=== PATIENT | male | born 1960 | race African-American/Black ===

== ENCOUNTER 2019-02-02 04:21 | Inpatient (IN) | payer OTHER ==
[~2019-02-02] VITALS: Ht 185.4 cm; Wt 69.4 kg
[2019-02-02] MEDS ORDERED: ONDANSETRON HCL 4MG/2ML INJ IV STA (04:42)
[2019-02-02] MEDS ORDERED: SODIUM CHLORIDE 0.9% 1,000 ML IV ONE (04:42)
[2019-02-02] MEDS ORDERED: MORPHINE SULFATE 4 MG/ML CPJ (NOT FOR IM USE) IV STA (04:42)
[2019-02-02 05:06] LABS: HEMATOCRIT. 36.4 % (42.0-52.0); HEMOGLOBIN. 12.4 g/dL (14.0-18.0); MEAN CORPUSCULAR HEMOGLOBIN 31.2 pg (28.0-32.0); MEAN CORPUSCULAR VOLUME 91.2 fL (80.0-94.0); MEAN PLATELET VOLUME 8.3 fl (7.4-10.4); PLATELET 184 x1000/uL (130-400); RED BLOOD CELL COUNT 3.99 mill/uL (4.7-6.1); RED CELL DISTRIBUTION WIDTH 13.4 % (11.6-14.6)
[2019-02-02 05:13] LABS: CHLORIDE 104 mEq/L (98-107)
[2019-02-02 05:18] LABS: ETHANOL BLOOD < 10 mg/dL
[2019-02-02 05:30] LABS: INR 1.1
[2019-02-02 08:41] LABS: CLARITY URINE TURBID (CLEAR); COLOR URINE ORANGE (YELLOW); KETONES URINE 1+ (NEGATIVE); LEUKOCYTE ESTERASE URINE NEGATIVE (NEGATIVE); NITRITE URINE NEGATIVE (NEGATIVE); OCCULT BLOOD URINE 1+ (NEGATIVE); PROTEIN URINE NEGATIVE (NEGATIVE); SPECIFIC GRAVITY URINE 1.024 (1.005-1.030)
[2019-02-02 08:54] LABS: PLATELET ESTIMATE NORMAL
[2019-02-02 09:08] LABS: *BARBITURATES SCREEN URINE NEGATIVE (NEGATIVE); *BENZODIAZEPINES SCREEN URINE NEGATIVE (NEGATIVE); *COCAINE SCREEN URINE NEGATIVE (NEGATIVE); CANNABINOID URINE SCREEN PRESUMTIVE POSITIVE (NEGATIVE); PHENCYCLIDINE URINE SCREEN NEGATIVE (NEGATIVE)
[2019-02-02 09:09] LABS: *AMPHETAMINES SCREEN URINE NEGATIVE (NEGATIVE); METHADONE URINE SCREEN NEGATIVE (NEGATIVE); OPIATES URINE SCREEN PRESUMTIVE POSITIVE (NEGATIVE)
[2019-02-02 09:15] VITALS: BP 150/82
[2019-02-02 09:20] VITALS: BP 150/82
[2019-02-02] MEDS ORDERED: HYDROCODONE/ACETAMINOPHEN 5/325MG TABLET PO PRN (12:00)
[2019-02-02] MEDS ORDERED: ONDANSETRON HCL 4MG/2ML INJ IV PRN (12:00)
[2019-02-02] MEDS ORDERED: ACETAMINOPHEN 650MG SUPP PR PRN (12:00)
[2019-02-02] MEDS ORDERED: DOCUSATE SODIUM 100MG CAPSULE PO PRN (12:00)
[2019-02-02] MEDS ORDERED: NA PHOS,M-B/NA PHOS,DI-BA ENEMA 118ML PR PRN (12:00)
[2019-02-02] MEDS ORDERED: HYDRALAZINE 20MG/ML VIAL IV PRN (12:00)
[2019-02-02] MEDS ORDERED: DIPHENHYDRAMINE 50MG/ML VIAL IV PRN (12:00)
[2019-02-02] MEDS ORDERED: GUAIFENESIN 200MG/10ML SUGAR FREE UDC PO PRN (12:00)
[2019-02-02] MEDS ORDERED: MAGNESIUM/ALUMINUM HYDROXIDE/SIMETHICONE 30ML UDC PO PRN (12:00)
[2019-02-02] MEDS ORDERED: CLONIDINE 0.1MG TABLET PO PRN (12:00)
[2019-02-02] MEDS ORDERED: IPRATROPIUM/ALBUTEROL 0.5-3(2.5)MG/3ML NEB NEB PRN (12:00)
[2019-02-02] MEDS ORDERED: LORAZEPAM 2MG/ML CPJ IV PRN (12:00)
[2019-02-02] MEDS ORDERED: LORAZEPAM 0.5MG TABLET PO PRN (12:00)
[2019-02-02] MEDS: PANTOPRAZOLE SODIUM 40 MG/VIAL IV SCH (12:25)
[2019-02-02] MEDS: MORPHINE SULFATE 2 MG/ML CPJ (NOT FOR IM USE) IV PRN ×2 (12:25→20:17)
[2019-02-02 12:29] VITALS: BP 132/84
[2019-02-02 13:11] LABS: PROTHROMBIN TIME 10.6 sec (9.6-11.0)
[2019-02-02 15:29] LABS: HEPATITIS B SURFACE ANTIGEN NEGATIVE
[2019-02-02] MEDS: [UNRECOGNIZED DRUG - REMARK] IV SCH ×4 (15:29)
[2019-02-02] MEDS: CHLORDIAZEPOXIDE 25MG CAPSULE PO SCH ×2 (15:36→21:02)
[2019-02-02] MEDS: ENOXAPARIN 40MG/0.4ML SYR SUBCUT SCH (15:37)
[2019-02-02 15:53] LABS: HEPATITIS A AB IGM NEGATIVE (NEGATIVE)
[2019-02-02 16:00] VITALS: BP 154/76
[2019-02-02 18:20] LABS: CREATINE KINASE 191 IU/L (39-308); CREATINE KINASE MB FRACTION < 1.0 ng/mL (0.5-3.6)
[2019-02-02 20:00] VITALS: BP 146/82
[2019-02-02 23:59] LABS: CREATINE KINASE 147 IU/L (39-308); CREATINE KINASE MB FRACTION < 1.0 ng/mL (0.5-3.6)
[2019-02-03] VITALS: BP 121/73
[2019-02-03] MEDS: MORPHINE SULFATE 2 MG/ML CPJ (NOT FOR IM USE) IV PRN ×4 (02:21→22:01)
[2019-02-03 04:00] VITALS: BP 154/82
[2019-02-03] MEDS: CHLORDIAZEPOXIDE 25MG CAPSULE PO SCH ×3 (05:31→22:00)
[2019-02-03 08:00] VITALS: BP 120/56
[2019-02-03 08:20] LABS: CHLORIDE 105 mEq/L (98-107)
[2019-02-03 08:25] LABS: BASOPHILS % 0.3 % (0.0-2.0); EOSINOPHILS % 0.5 % (0.0-5.0); HEMATOCRIT. 30.7 % (42.0-52.0); HEMOGLOBIN. 10.4 g/dL (14.0-18.0); LYMPHOCYTES % 10.4 % (20.0-50.0); MEAN CORPUSCULAR HEMOGLOBIN 31.3 pg (28.0-32.0); MEAN CORPUSCULAR VOLUME 92.6 fL (80.0-94.0); MONOCYTES % 8.3 % (2.0-8.0); NEUTROPHILS % 80.5 % (40.0-76.0); PLATELET 130 x1000/uL (130-400); RED BLOOD CELL COUNT 3.31 mill/uL (4.7-6.1); RED CELL DISTRIBUTION WIDTH 13.5 % (11.6-14.6)
[2019-02-03 08:28] LABS: LDL CHOLESTEROL 54 mg/dL (5-100)
[2019-02-03 08:30] LABS: HDL CHOLESTEROL 78 mg/dL (40-59); T4 FREE 1.03 ng/dL (0.76-1.46)
[2019-02-03] MEDS: [UNRECOGNIZED DRUG - REMARK] IV SCH ×4 (08:32)
[2019-02-03] MEDS: PANTOPRAZOLE SODIUM 40 MG/VIAL IV SCH (08:32)
[2019-02-03] MEDS: ENOXAPARIN 40MG/0.4ML SYR SUBCUT SCH (11:59)
[2019-02-03 12:00] VITALS: BP 165/82
[2019-02-03] MEDS ORDERED: MORPHINE SULFATE 2 MG/ML CPJ (NOT FOR IM USE) IV PRN (12:15)
[2019-02-03] MEDS ORDERED: POTASSIUM CHLORIDE INJ 40 MEQ in DEXT 5% WATER 250 ML IV NR (13:00)
[2019-02-03] MEDS ORDERED: CLONIDINE 0.1MG TABLET PO PRN (13:45)
[2019-02-03] MEDS: AMLODIPINE 2.5MG TABLET PO SCH ×2 (15:06→22:21)
[2019-02-03] MEDS: ACETAMINOPHEN 325MG TABLET PO PRN (15:07)
[2019-02-03 16:00] VITALS: BP 131/65
[2019-02-03 20:00] VITALS: BP 107/60
[2019-02-04] VITALS: BP 110/63
[2019-02-04] MEDS: MORPHINE SULFATE 2 MG/ML CPJ (NOT FOR IM USE) IV PRN ×2 (02:15→20:58)
[2019-02-04 04:00] VITALS: BP 123/61
[2019-02-04] MEDS: CHLORDIAZEPOXIDE 25MG CAPSULE PO SCH ×2 (05:07→15:54)
[2019-02-04 06:10] LABS: BASOPHILS % 0.3 % (0.0-2.0); EOSINOPHILS % 2.8 % (0.0-5.0); HEMATOCRIT. 29.1 % (42.0-52.0); HEMOGLOBIN. 9.9 g/dL (14.0-18.0); LYMPHOCYTES % 12.4 % (20.0-50.0); MEAN CORPUSCULAR HEMOGLOBIN 31.2 pg (28.0-32.0); MEAN CORPUSCULAR VOLUME 92.2 fL (80.0-94.0); MEAN PLATELET VOLUME 8.9 fl (7.4-10.4); MONOCYTES % 6.7 % (2.0-8.0); NEUTROPHILS % 77.8 % (40.0-76.0); PLATELET 129 x1000/uL (130-400); RED BLOOD CELL COUNT 3.16 mill/uL (4.7-6.1); RED CELL DISTRIBUTION WIDTH 12.7 % (11.6-14.6)
[2019-02-04 06:16] LABS: CHLORIDE 106 mEq/L (98-107)
[2019-02-04 06:25] LABS: LDL CHOLESTEROL 51 mg/dL (5-100)
[2019-02-04 06:27] LABS: CREATINE KINASE 52 IU/L (39-308); CREATINE KINASE MB FRACTION < 1.0 ng/mL (0.5-3.6); HDL CHOLESTEROL 70 mg/dL (40-59)
[2019-02-04] MEDS ORDERED: TRANEXAMIC ACID 1,000 MG/10 ML IV NR (06:32)
[2019-02-04] MEDS ORDERED: MORPHINE SULFATE/PF 1MG/ML 10ML AMP ONE (06:35)
[2019-02-04] MEDS ORDERED: KETOROLAC 30MG/ML VIAL ONE (06:35)
[2019-02-04] MEDS ORDERED: ROPIVACAINE HCL 10MG/ML 20 ML VIAL EPI ONE ×2 (06:35→07:11)
[2019-02-04] MEDS ORDERED: EPINEPHRINE 1:1000 1 MG/ML AMP ONE ×2 (06:35→07:10)
[2019-02-04] MEDS ORDERED: BACITRACIN 50,000 UNITS/VIAL ONE (06:36)
[2019-02-04] MEDS ORDERED: NORMAL SALINE 0.9% 10 ML SYR ONE (06:36)
[2019-02-04] MEDS ORDERED: TRANEXAMIC ACID 1,000 MG in SODIUM CHLORIDE 0.9% 100 ML IV NR ×2 (07:00→08:00)
[2019-02-04] MEDS ORDERED: VANCOMYCIN HCL 500 MG/VIAL ONE (07:11)
[2019-02-04] MEDS ORDERED: FENTANYL CITRATE/PF 50MCG/ML 2ML VIAL ONE ×3 (07:34→08:58)
[2019-02-04] MEDS ORDERED: MIDAZOLAM HCL 2 MG/2 ML VIAL ONE (07:34)
[2019-02-04] MEDS ORDERED: ROCURONIUM BROMIDE 10MG/ML VIAL 5ML IV ONE (07:34)
[2019-02-04] MEDS ORDERED: PROPOFOL 200MG/20ML VIAL IV ONE (07:34)
[2019-02-04] MEDS ORDERED: NEOSTIGMINE METHYLSULFATE 1MG/ML 10 ML VIAL ONE (07:34)
[2019-02-04] MEDS ORDERED: CEFAZOLIN SODIUM 1000MG/VIAL ONE (07:35)
[2019-02-04] MEDS ORDERED: ONDANSETRON HCL 4MG/2ML INJ ONE (07:35)
[2019-02-04] MEDS ORDERED: METOCLOPRAMIDE HCL 10MG/2ML VIAL ONE (07:35)
[2019-02-04] MEDS ORDERED: EPHEDRINE SULFATE 50MG/ML VIAL ONE (07:35)
[2019-02-04] MEDS ORDERED: SUCCINYLCHOLINE CHLORIDE 200MG/10ML IV ONE (07:35)
[2019-02-04] MEDS ORDERED: SODIUM CHLORIDE 0.9% 10ML VIAL ONE (07:35)
[2019-02-04] MEDS ORDERED: LIDOCAINE HCL/PF 1% 10 MG/ML 5ML VIAL ONE (07:35)
[2019-02-04] MEDS ORDERED: GLYCOPYRROLATE 0.2 MG/ML 2ML VIAL ONE (07:35)
[2019-02-04] MEDS ORDERED: PHENYLEPHRINE HCL 10 MG/ML 1ML (IV VIAL) IV ONE (07:35)
[2019-02-04] MEDS ORDERED: CEFAZOLIN 1000MG PREMIX 50 ML IV SCH (07:35)
[2019-02-04] MEDS ORDERED: SKIN ADHESIVE 0.7 GM EA TOP ONE (08:19)
[2019-02-04] MEDS: AMLODIPINE 2.5MG TABLET PO SCH ×2 (09:00→21:32)
[2019-02-04] MEDS: [UNRECOGNIZED DRUG - REMARK] IV SCH ×4 (09:00)
[2019-02-04] MEDS ORDERED: SODIUM CHLORIDE 0.9% 1,000 ML IV ONE (10:23)
[2019-02-04] MEDS ORDERED: HYDROCODONE/ACETAMINOPHEN 10/325MG TABLET PO PRN (10:30)
[2019-02-04] MEDS ORDERED: KETOROLAC 30MG/ML VIAL IV PRN (10:30)
[2019-02-04] MEDS ORDERED: HYDROMORPHONE HCL/PF 2MG/ML CPJ IV PRN (10:30)
[2019-02-04] MEDS ORDERED: MORPHINE SULFATE 2 MG/ML CPJ (NOT FOR IM USE) IV PRN (10:30)
[2019-02-04] MEDS ORDERED: MEPERIDINE HCL/PF 25MG/ML CPJ IV PRN ×2 (10:30)
[2019-02-04] MEDS ORDERED: ONDANSETRON HCL 4MG/2ML INJ IV PRN (10:30)
[2019-02-04] MEDS: ENOXAPARIN 40MG/0.4ML SYR SUBCUT SCH (13:00)
[2019-02-04] MEDS ORDERED: POTASSIUM CHLORIDE 20MEQ TABLET SR PO NR (15:00)
[2019-02-04 15:34] VITALS: BP 142/66
[2019-02-04] MEDS: CEFAZOLIN 1000MG PREMIX 50 ML IV SCH ×2 (18:12→22:28)
[2019-02-04 20:00] VITALS: BP 127/61
[2019-02-05] MEDS: ACETAMINOPHEN 325MG TABLET PO PRN ×2 (00:22→22:53)
[2019-02-05 00:37] VITALS: BP 124/63
[2019-02-05] MEDS: MORPHINE SULFATE 2 MG/ML CPJ (NOT FOR IM USE) IV PRN ×3 (02:10→19:13)
[2019-02-05 04:00] VITALS: BP 111/62
[2019-02-05] MEDS: CEFAZOLIN 1000MG PREMIX 50 ML IV SCH ×3 (06:35→23:08)
[2019-02-05 08:09] LABS: BASOPHILS % 0.2 % (0.0-2.0); EOSINOPHILS % 1.7 % (0.0-5.0); HEMATOCRIT. 22.3 % (42.0-52.0); HEMOGLOBIN. 7.5 g/dL (14.0-18.0); LYMPHOCYTES % 10.4 % (20.0-50.0); MEAN CORPUSCULAR HEMOGLOBIN 31.3 pg (28.0-32.0); MEAN CORPUSCULAR VOLUME 93.1 fL (80.0-94.0); MEAN PLATELET VOLUME 8.9 fl (7.4-10.4); MONOCYTES % 9.7 % (2.0-8.0); PLATELET 149 x1000/uL (130-400); RED CELL DISTRIBUTION WIDTH 12.9 % (11.6-14.6)
[2019-02-05 08:14] VITALS: BP 113/59
[2019-02-05 08:19] LABS: CHLORIDE 106 mEq/L (98-107)
[2019-02-05] MEDS: AMLODIPINE 2.5MG TABLET PO SCH ×2 (09:00→21:00)
[2019-02-05 11:54] VITALS: BP 104/57
[2019-02-05] MEDS ORDERED: POTASSIUM CHLORIDE 20MEQ TABLET SR PO NR (12:15)
[2019-02-05] MEDS: ENOXAPARIN 40MG/0.4ML SYR SUBCUT SCH (12:43)
[2019-02-05 15:53] VITALS: BP 107/57
[2019-02-05 20:00] VITALS: BP 120/64
[2019-02-05 22:09] LABS: HEMOGLOBIN 6.9 g/dL (14.0-18.0)
[2019-02-05 22:10] LABS: HEMATOCRIT 20.3 % (42.0-52.0)
[2019-02-06] VITALS (11 sets, daily range): BP systolic 104–144; BP diastolic 55–82
[2019-02-06] MEDS: [UNRECOGNIZED DRUG - REMARK] IV SCH ×8 (01:53→09:23)
[2019-02-06] MEDS: CEFAZOLIN 1000MG PREMIX 50 ML IV SCH ×2 (06:46→15:39)
[2019-02-06] MEDS: MORPHINE SULFATE 2 MG/ML CPJ (NOT FOR IM USE) IV PRN ×3 (06:58→22:10)
[2019-02-06] MEDS: AMLODIPINE 2.5MG TABLET PO SCH (09:23)
[2019-02-06 09:41] LABS: HEMATOCRIT. 25.7 % (42.0-52.0); HEMOGLOBIN. 8.9 g/dL (14.0-18.0); MEAN CORPUSCULAR HEMOGLOBIN 31.7 pg (28.0-32.0); MEAN CORPUSCULAR VOLUME 91.3 fL (80.0-94.0); PLATELET 192 x1000/uL (130-400); RED BLOOD CELL COUNT 2.81 mill/uL (4.7-6.1); RED CELL DISTRIBUTION WIDTH 13.5 % (11.6-14.6)
[2019-02-06 09:57] LABS: CHLORIDE 103 mEq/L (98-107)
[2019-02-06 12:53] LABS: PLATELET ESTIMATE NORMAL
[2019-02-06] MEDS: ACETAMINOPHEN 325MG TABLET PO PRN (13:05)
[2019-02-06 18:12] LABS: HEMATOCRIT 23.9 % (42.0-52.0); HEMOGLOBIN 8.2 g/dL (14.0-18.0)
[2019-02-06] MEDS ORDERED: BISACODYL 10MG SUPP PR NR (18:30)
[2019-02-06] MEDS: DOCUSATE SODIUM 100MG CAPSULE PO SCH (19:04)
[2019-02-06] MEDS: AMLODIPINE 5MG TABLET PO SCH (20:44)
[2019-02-06 22:08] LABS: HEMATOCRIT 22.9 % (42.0-52.0); HEMOGLOBIN 7.9 g/dL (14.0-18.0)
[2019-02-07] VITALS (10 sets, daily range): BP systolic 103–146; BP diastolic 60–76
[2019-02-07] MEDS: MORPHINE SULFATE 2 MG/ML CPJ (NOT FOR IM USE) IV PRN ×4 (02:10→22:54)
[2019-02-07 06:52] LABS: HEMOGLOBIN 7.6 g/dL (14.0-18.0); MEAN CORPUSCULAR HEMOGLOBIN 31.1 pg (28.0-32.0); MEAN CORPUSCULAR VOLUME 90.3 fL (80.0-94.0); PLATELET 221 x1000/uL (130-400); RED BLOOD CELL COUNT 2.43 mill/uL (4.7-6.1); RED CELL DISTRIBUTION WIDTH 13.5 % (11.6-14.6)
[2019-02-07 07:16] LABS: CHLORIDE 103 mEq/L (98-107)
[2019-02-07] MEDS: [UNRECOGNIZED DRUG - REMARK] IV SCH ×4 (08:37)
[2019-02-07] MEDS: DOCUSATE SODIUM 100MG CAPSULE PO SCH ×2 (08:38→17:42)
[2019-02-07] MEDS: AMLODIPINE 5MG TABLET PO SCH ×2 (08:38→21:00)
[2019-02-07] MEDS ORDERED: POTASSIUM CHLORIDE 20MEQ TABLET SR PO NR (10:49)
[2019-02-07] MEDS: ZINC SULFATE 220 MG ( 50 ) CAPSULE PO SCH (11:19)
[2019-02-07] MEDS: MULTIVITAMINS,THER W-MINERALS TABLET PO SCH (11:19)
[2019-02-07] MEDS: ASCORBIC ACID 500 MG TABLET PO SCH ×2 (11:20→21:07)
[2019-02-07] MEDS: FERROUS SULFATE 325MG TABLET PO SCH ×2 (12:50→17:42)
[2019-02-07 18:37] LABS: HEMATOCRIT 27.5 % (42.0-52.0); HEMOGLOBIN 9.2 g/dL (14.0-18.0)
[2019-02-07 23:37] LABS: HEMOGLOBIN 9.2 g/dL (14.0-18.0)
[2019-02-08] VITALS (7 sets, daily range): BP systolic 118–131; BP diastolic 68–74
[2019-02-08] MEDS: MORPHINE SULFATE 2 MG/ML CPJ (NOT FOR IM USE) IV PRN (03:22)
[2019-02-08 07:11] LABS: BASOPHILS % 0.8 % (0.0-2.0); HEMATOCRIT. 27.9 % (42.0-52.0); HEMOGLOBIN. 9.5 g/dL (14.0-18.0); LYMPHOCYTES % 13.6 % (20.0-50.0); MEAN CORPUSCULAR VOLUME 91.1 fL (80.0-94.0); MEAN PLATELET VOLUME 8.3 fl (7.4-10.4); MONOCYTES % 14.8 % (2.0-8.0); NEUTROPHILS % 65.8 % (40.0-76.0); PLATELET 311 x1000/uL (130-400); RED BLOOD CELL COUNT 3.06 mill/uL (4.7-6.1); RED CELL DISTRIBUTION WIDTH 13.1 % (11.6-14.6)
[2019-02-08 07:20] LABS: CHLORIDE 105 mEq/L (98-107)
[2019-02-08] MEDS: [UNRECOGNIZED DRUG - REMARK] IV SCH ×4 (08:27)
[2019-02-08] MEDS: ASCORBIC ACID 500 MG TABLET PO SCH (08:47)
[2019-02-08] MEDS: ZINC SULFATE 220 MG ( 50 ) CAPSULE PO SCH (08:47)
[2019-02-08] MEDS: DOCUSATE SODIUM 100MG CAPSULE PO SCH (08:49)
[2019-02-08] MEDS: MULTIVITAMINS,THER W-MINERALS TABLET PO SCH (08:49)
[2019-02-08] MEDS: AMLODIPINE 5MG TABLET PO SCH (08:49)
[2019-02-08] MEDS: FERROUS SULFATE 325MG TABLET PO SCH ×2 (08:49→12:40)
[2019-02-08] MEDS ORDERED: ASPIRIN 325MG EC TABLET PO SCH (13:30)
== END 2019-02-08 18:05 | DRG 301 ==
LOC: ER 04:55 → 6WST 05:31 → EDBEDREQTM 05:34 → EDBEDREQ 05:34 → ENRESERV 08:02
PROVIDERS: ADMIT Internal Medicine; ATTEND Internal Medicine
PROC: 0SRB049 Replacement of Left Hip Joint with Ceramic on Polyethylene Synthetic Substitute, Cemented, Open Approach (ICD-10-PCS; principal; 2019-02-05)
PROC: 30233N1 Transfusion of Nonautologous Red Blood Cells into Peripheral Vein, Percutaneous Approach (ICD-10-PCS; 2019-02-06)
DX: S72.142A Displaced intertrochanteric fracture of left femur, initial encounter for closed fracture (principal); I50.33 Acute on chronic diastolic (congestive) heart failure; E44.1 Mild protein-calorie malnutrition; M87.9 Osteonecrosis, unspecified; D64.9 Anemia, unspecified; I11.0 Hypertensive heart disease with heart failure; E87.6 Hypokalemia; F12.90 Cannabis use, unspecified, uncomplicated; M16.12 Unilateral primary osteoarthritis, left hip; J43.9 Emphysema, unspecified; R29.6 Repeated falls; R74.0 Nonspecific elevation of levels of transaminase and lactic acid dehydrogenase [LDH]; N39.0 Urinary tract infection, site not specified; W18.30XA Fall on same level, unspecified, initial encounter; F10.10 Alcohol abuse, uncomplicated; R26.9 Unspecified abnormalities of gait and mobility; R73.9 Hyperglycemia, unspecified; G89.29 Other chronic pain; Z68.20 Body mass index [BMI] 20.0-20.9, adult; Q65.89 Other specified congenital deformities of hip; Z90.49 Acquired absence of other specified parts of digestive tract; Z91.19 Patient's noncompliance with other medical treatment and regimen; Y93.89 Activity, other specified; Y92.098 Other place in other non-institutional residence as the place of occurrence of the external cause; Y99.8 Other external cause status
CPT/HCPCS: 36415; 71045; 72192; 73501; 73502; 73551; 74176; 76700; 80048; 80061; 80076; 80305; 80320; 81003; 82140; 82550; 82553; 83036; 83735; 84439; 84443; 84484; 85014; 85018; 85027; 86705; 86709; 86803; 86850; 86900; 86920; 87340; 88305; 88311; 93005; 93306; 93970; 97110; 97162; 97530; 99285; C1713; C1776; C9113; J0330; J0690; J1650; J1885; J2250; J2270; J2274; J2370; J2405; J2704; J2710; J2765; J2795; J3010; J3370; J3411; J3480; J3490; J7030; J7040; J7050; J7060; P9016; G0480

== ENCOUNTER 2019-11-27 07:29 | Emergency (ER) | payer OTHER ==
[~2019-11-27] VITALS: Ht 185.4 cm; Wt 55.0 kg
[2019-11-27] MEDS ORDERED: SODIUM CHLORIDE 0.9% 1000ML BAG (SEPSIS BOLUS) IV ONE (08:00)
[2019-11-27] MEDS ORDERED: PIPERACILLIN/TAZ 3.375G PREMIX 50 ML IV ONE (08:00)
[2019-11-27 08:15] LABS: BASOPHILS % 0.7 % (0.0-2.0); EOSINOPHILS % 0.1 % (0.0-5.0); HEMATOCRIT. 40.3 % (42.0-52.0); HEMOGLOBIN. 13.8 g/dL (14.0-18.0); LYMPHOCYTES % 11.4 % (20.0-50.0); MEAN CORPUSCULAR HEMOGLOBIN 31.1 pg (28.0-32.0); MEAN PLATELET VOLUME 8.8 fl (7.4-10.4); MONOCYTES % 9.3 % (2.0-8.0); NEUTROPHILS % 78.5 % (40.0-76.0); PLATELET 237 x1000/uL (130-400); RED BLOOD CELL COUNT 4.43 mill/uL (4.7-6.1); RED CELL DISTRIBUTION WIDTH 12.3 % (11.6-14.6)
[2019-11-27 08:25] LABS: CHLORIDE 109 mEq/L (98-107)
[2019-11-27 08:27] LABS: ETHANOL BLOOD < 10 mg/dL
[2019-11-27 08:46] LABS: CREATINE KINASE 3584 IU/L (39-308)
[2019-11-27 10:43] LABS: CLARITY URINE TURBID (CLEAR); COLOR URINE YELLOW (YELLOW); KETONES URINE NEGATIVE (NEGATIVE); LEUKOCYTE ESTERASE URINE NEGATIVE (NEGATIVE); NITRITE URINE NEGATIVE (NEGATIVE); OCCULT BLOOD URINE 2+ (NEGATIVE); PROTEIN URINE 1+ (NEGATIVE); SPECIFIC GRAVITY URINE 1.024 (1.005-1.030)
[2019-11-27] MEDS ORDERED: IOHEXOL-350 100 ML BOTTLE ONE (11:07)
[2019-11-27 11:28] LABS: *AMPHETAMINES SCREEN URINE NEGATIVE (NEGATIVE); *COCAINE SCREEN URINE NEGATIVE (NEGATIVE); CANNABINOID URINE SCREEN PRESUMTIVE POSITIVE (NEGATIVE); METHADONE URINE SCREEN NEGATIVE (NEGATIVE); OPIATES URINE SCREEN NEGATIVE (NEGATIVE); PHENCYCLIDINE URINE SCREEN NEGATIVE (NEGATIVE)
[2019-11-27 11:29] LABS: *BARBITURATES SCREEN URINE NEGATIVE (NEGATIVE); *BENZODIAZEPINES SCREEN URINE NEGATIVE (NEGATIVE)
[2019-11-27] MEDS ORDERED: SODIUM CHLORIDE 0.45% 1,000 ML IV SCH (13:15)
[2019-11-27 15:26] VITALS: BP 142/77
== END 2019-11-27 16:00 | disposition short-term general hospital (02) ==
LOC: ER 07:39 → EDBEDREQ 11:45 → EDBEDREQTM 11:45 → ENRESERV 11:49 → CANRESERV 11:49 → ER 16:00 → CANBEDREQ 18:36
DX: S80.212A Abrasion, left knee, initial encounter (principal); M62.82 Rhabdomyolysis; M48.061 Spinal stenosis, lumbar region without neurogenic claudication; I10 Essential (primary) hypertension; M19.90 Unspecified osteoarthritis, unspecified site; R26.9 Unspecified abnormalities of gait and mobility; D64.9 Anemia, unspecified; F12.10 Cannabis abuse, uncomplicated; R25.1 Tremor, unspecified; F17.210 Nicotine dependence, cigarettes, uncomplicated; F10.10 Alcohol abuse, uncomplicated; Y90.0 Blood alcohol level of less than 20 mg/100 ml; W07.XXXA Fall from chair, initial encounter; Y93.89 Activity, other specified; Y92.098 Other place in other non-institutional residence as the place of occurrence of the external cause
CPT/HCPCS: 36415; 70450; 71045; 71275; 72131; 80053; 80305; 80320; 81003; 82140; 82550; 82553; 83605; 83690; 83880; 84484; 85025; 85379; 87040; 87086; 93005; 96365; 99285; J2543; J7030; Q9967; G0480

== ENCOUNTER 2021-01-22 14:57 | Emergency (ER) | payer OTHER ==
[~2021-01-22] VITALS: Ht 177.8 cm; Wt 55.0 kg
[2021-01-22] MEDS ORDERED: SODIUM CHLORIDE 0.9% 1,000 ML IV ONE (16:30)
[2021-01-22 16:56] LABS: BASOPHILS % 0.6 % (0.0-2.0); EOSINOPHILS % 1.3 % (0.0-5.0); HEMATOCRIT. 40.6 % (42.0-52.0); HEMOGLOBIN. 13.6 g/dL (14.0-18.0); LYMPHOCYTES % 28.5 % (20.0-50.0); MEAN CORPUSCULAR HEMOGLOBIN 31.5 pg (28.0-32.0); MEAN CORPUSCULAR VOLUME 93.9 fL (80.0-94.0); MEAN PLATELET VOLUME 8.5 fl (7.4-10.4); MONOCYTES % 8.7 % (2.0-8.0); NEUTROPHILS % 60.9 % (40.0-76.0); PLATELET 206 x1000/uL (130-400); RED BLOOD CELL COUNT 4.33 mill/uL (4.7-6.1); RED CELL DISTRIBUTION WIDTH 13.2 % (11.6-14.6)
[2021-01-22 16:59] LABS: CHLORIDE 105 mEq/L (98-107)
[2021-01-22 17:04] LABS: ETHANOL BLOOD 179 mg/dL
[2021-01-22 17:09] LABS: CREATINE KINASE 75 IU/L (39-308)
[2021-01-22 18:01] LABS: CLARITY URINE CLEAR (CLEAR); COLOR URINE YELLOW (YELLOW); KETONES URINE NEGATIVE (NEGATIVE); LEUKOCYTE ESTERASE URINE NEGATIVE (NEGATIVE); NITRITE URINE NEGATIVE (NEGATIVE); OCCULT BLOOD URINE NEGATIVE (NEGATIVE); PROTEIN URINE NEGATIVE (NEGATIVE); SPECIFIC GRAVITY URINE 1.003 (1.005-1.030); UROBILINOGEN URINE 0.2 E.U./dL (0.2-1.0)
[2021-01-22 18:14] LABS: *AMPHETAMINES SCREEN URINE NEGATIVE (NEGATIVE); *BARBITURATES SCREEN URINE NEGATIVE (NEGATIVE); *BENZODIAZEPINES SCREEN URINE NEGATIVE (NEGATIVE); *COCAINE SCREEN URINE NEGATIVE (NEGATIVE); METHADONE URINE SCREEN NEGATIVE (NEGATIVE)
[2021-01-22 18:15] LABS: CANNABINOID URINE SCREEN PRESUMTIVE POSITIVE (NEGATIVE); OPIATES URINE SCREEN NEGATIVE (NEGATIVE); PHENCYCLIDINE URINE SCREEN NEGATIVE (NEGATIVE)
[2021-01-22 20:00] VITALS: BP 124/74
== END 2021-01-22 21:19 | disposition home or self-care (01) ==
LOC: ER 14:57
DX: T51.0X1A Toxic effect of ethanol, accidental (unintentional), initial encounter (principal); R53.1 Weakness; I10 Essential (primary) hypertension; M19.90 Unspecified osteoarthritis, unspecified site; G20 Parkinson's disease; F12.10 Cannabis abuse, uncomplicated; Y90.6 Blood alcohol level of 120-199 mg/100 ml; Z86.73 Personal history of transient ischemic attack (TIA), and cerebral infarction without residual deficits; Z87.891 Personal history of nicotine dependence; Y92.018 Other place in single-family (private) house as the place of occurrence of the external cause
CPT/HCPCS: 36415; 80053; 80305; 80320; 81003; 82550; 83880; 84484; 85025; 93005; 96360; 99291; J7030; Z7610; G0480

== ENCOUNTER 2022-12-31 05:19 | Emergency (ER) | payer OTHER ==
[~2022-12-31] VITALS: Ht 172.7 cm; Wt 75.0 kg
[2022-12-31 05:22] VITALS: O2SAT 97
[2022-12-31] MEDS ORDERED: SODIUM CHLORIDE 0.9% 1,000 ML IV ONE (05:45)
[2022-12-31 05:53] LABS: BASOPHILS % 0.4 % (0.0-2.0); EOSINOPHILS % 1.1 % (0.0-5.0); HEMATOCRIT. 38.7 % (42.0-52.0); HEMOGLOBIN. 13.1 g/dL (14.0-18.0); LYMPHOCYTES % 13.5 % (20.0-50.0); MEAN CORPUSCULAR HEMOGLOBIN 31.2 pg (28.0-32.0); MEAN CORPUSCULAR HGB CONC 33.9 g/dL (31.0-37.0); MEAN PLATELET VOLUME 8.2 fl (7.4-10.4); MONOCYTES % 8.8 % (2.0-8.0); NEUTROPHILS % 76.2 % (40.0-76.0); PLATELET 222 x1000/uL (130-400); WHITE BLOOD COUNT 8.4 x1000/uL (4.5-11.0)
[2022-12-31 06:08] LABS: CHLORIDE 108 mEq/L (98-107); INDEX HEMOLYSI 1 (1-3); INDEX ICTERIC 1 (1-4); INDEX LIPEMIC 1 (1-3); POTASSIUM 3.4 mEq/L (3.5-5.1); SODIUM 135 mEq/L (136-145)
[2022-12-31 06:11] LABS: PROTHROMBIN TIME 10.8 sec (9.6-11.0)
[2022-12-31 06:18] LABS: ALANINE AMINOTRANSFERASE 22 IU/L (13-61); ALBUMIN 3.7 g/dL (3.4-5.0); ASPARTATE AMINOTRANSFERASE 15 IU/L (15-37); BILIRUBIN TOTAL 1.4 mg/dL (0.1-1.0); CALCIUM 8.7 mg/dL (8.5-10.1); CARBON DIOXIDE 24 mEq/L (21-32); CREATININE 0.7 mg/dL (0.6-1.3); GLUCOSE 92 mg/dL (70-105); PROTEIN TOTAL 7.5 g/dL (6.0-8.3); TROPONIN I HIGH SENSITIVITY 8 ng/L (<78); UREA NITROGEN BLOOD 4 mg/dL (7-21)
[2022-12-31 08:03] LABS: CLARITY URINE CLEAR (CLEAR); COLOR URINE YELLOW (YELLOW); GLUCOSE URINE NEGATIVE (NEGATIVE); KETONES URINE NEGATIVE (NEGATIVE); LEUKOCYTE ESTERASE URINE NEGATIVE (NEGATIVE); NITRITE URINE NEGATIVE (NEGATIVE); OCCULT BLOOD URINE TRACE (NEGATIVE); PH URINE 5.5 (4.5-8.0); PROTEIN URINE NEGATIVE (NEGATIVE); SPECIFIC GRAVITY URINE 1.009 (1.005-1.030); UROBILINOGEN URINE 0.2 E.U./dL (0.2-1.0)
[2022-12-31 08:30] LABS: BACTERIA URINE NONE SEEN; RBC URINE NONE SEEN /hpf (0-2); SQUAMOUS EPITHELIAL CELL URINE NONE SEEN /lpf (RARE/1+); WBC URINE 0-2 /hpf (0-2); YEAST URINE NONE SEEN
[2022-12-31 10:33] LABS: INDEX HEMOLYSI 2 (1-3)
[2022-12-31 10:41] LABS: CREATINE KINASE 79 IU/L (39-308)
[2022-12-31 13:55] VITALS: BP 160/89; PULSE 82; RESP 16; TEMP 98.6
== END 2022-12-31 13:59 | disposition short-term general hospital (02) ==
LOC: ER 05:19 → CANBEDREQ 01-02 21:14
DX: R53.1 Weakness (principal); I10 Essential (primary) hypertension; Z98.890 Other specified postprocedural states; Z86.73 Personal history of transient ischemic attack (TIA), and cerebral infarction without residual deficits
CPT/HCPCS: 80053; 81003; 82550; 85025; 85610; 84484; 36415; 71045; 70450; 93005; 99291; J7030; Z7610